=== PATIENT | female | born 1965 | race Caucasian/White ===

== ENCOUNTER → 2018-06-04 | Outpatient (CLI) | payer OTHER ==
--- NOTE | 2018-06-05 10:19 | MM ---
Reason for exam: screening (asymptomatic). Last mammogram was performed 2 years and 8 months ago. History: Family history of breast cancer in mother. Physical Findings: A clinical breast exam by your physician is recommended on an annual basis and results should be correlated with mammographic findings. MG 3D Screening Mammo W/Cad Bilateral CC and MLO view(s) were taken. Prior study comparison: October 02, 2015, mammogram, performed at [facility]. November 11, 2011, bilateral digital screening mammo w/CAD. The breast tissue is heterogeneously dense. This may lower the sensitivity of mammography. Benign calcifications bilaterally. No significant changes when compared with prior studies. ASSESSMENT: Benign, BI-RAD 2 RECOMMENDATION: Routine screening mammogram of both breasts in 1 year.
== END | disposition home or self-care (01) ==
LOC: RADMAMWWP 07:59
PROVIDERS: ATTEND Family Medicine
DX: Z12.31 Encounter for screening mammogram for malignant neoplasm of breast (principal); R53.83 Other fatigue
CPT/HCPCS: 77063; 77067

== ENCOUNTER → 2022-11-17 | Outpatient (CLI) | payer MEDICAID ==
--- NOTE | 2022-11-17 15:58 | BD ---
EXAMINATION TYPE: Axial Bone Density DATE OF EXAM: 11/17/2022 CLINICAL HISTORY: 56 years old Female. ICD-10 CODE: Z13.820 SCREEN FOR OSTEOPOROSIS Height: 62 Weight: 206.7 FRAX RISK QUESTIONS: Alcohol (3 or more units per day): no Family History (Parent hip fracture): no Glucocorticoids (More than 3mos): no History of Fracture in Adulthood: no Secondary Osteoporosis: 1. Type 1 Diabetes: no 2. Hyperthyroidism: no 3. Menopause before 45: no 4. Malnutrition: no 5. Chronic liver disease: no Rheumatoid Arthritis: no Current Tobacco Use: no RISK FACTORS HISTORY OF: Hip Fracture (Right/Left): no Spine Fracture: no History of Wrist Fracture: no Surgery to Spine/Hip(right/left)/Wrist (right/left): no Family History of Osteoporosis: Maternal Grandmother Active: yes Diet low in dairy products/other sources of calcium: yes Postmenopausal woman: yes Take estrogen and/or progesterone medications: no Lost more than 2 inches in height since high school: no Frequent falls: no Poor Health: no Hyperparathyroidism: no Adrenal Insufficiency: no MEDICATIONS: Prednisone or other steroids: no Thyroid Medications: no Osteoporosis Medications: no Additional Medications: Inhaler, vit d, reflux meds Additional History: EXAM MEASUREMENTS: Bone mineral densitometry was performed using the [employer] System. Bone mineral density as measured about the Lumbar spine is: ----- L1-L4(G/cm2): 1.054 T Score Values are as follows: ----- L1: -1.6 ----- L2: -1.9 ----- L3: -0.5 ----- L4: -0.6 ----- L1-L4: -1.0 Z Score Values are as follows: ----- L1: -1.6 ----- L2: -1.9 ----- L3: -0.5 ----- L4: -0.6 ----- L1-L4: -1.1 Baseline Study Bone mineral density about the R hip (g/cm2): 0.996 Bone mineral density about the L hip (g/cm2): 1.042 T Score values are as follows: -----R Neck: -0.8 -----L Neck: -0.9 -----R Total: -0.1 -----L Total: 0.3 Z Score values are as follows: -----R Neck: -0.3 -----L Neck: -0.4 -----R Total: 0.0 -----L Total: 0.3 Baseline Study FRAX%s: The graph provided illustrates a 5.6% chance for a major osteoporotic fx and a 0.2% chance fo r the hips probability for fx in 10 years time. IMPRESSION: Osteopenia (T Score between -2.5 and -1). There is slightly increased risk of fracture and the patient may be considered for treatment. Re-Screen 2-5 years. NOTE: T-SCORE=SD OF THE YOUNG ADULT MEAN.
--- NOTE | 2022-11-21 12:39 | MM ---
Reason for Exam: Screening (asymptomatic). Last mammogram was performed 1 year(s) and 1 month(s) ago. Patient History: Menarche at age 15. First Full-Term at age 27. Hysterectomy at age 46. Patient has history of breast feeding. Mother had breast cancer. Risk Values: Ginger 5 year model risk: 2.2%. NCI Lifetime model risk: 14.0%. Prior Study Comparison: 11/11/2011 Bilateral Screening Mammogram, [facility]. 10/02/2015 Screening Mammogram, [facility] [place]. 06/04/2018 Bilateral Screening Mammogram, [facility]. 08/17/2020 Bilateral Screening Mammogram, [facility] [place]. 03/24/2021 Left Diagnostic Mammogram, [facility] [place]. 10/11/2021 Bilateral Screening Mammogram, [facility] [place]. Tissue Density: There are scattered fibroglandular densities. Findings: Analyzed By CAD. There is no suspicious new group of microcalcifications or new suspicious mass in either breast. Overall Assessment: Negative, BI-RAD 1 Management: Screening Mammogram of both breasts in 1 year. A clinical breast exam by your physician is recommended on an annual basis and results should be correlated with mammographic findings. Electronically signed and approved by: Jesus Bradley M.D.
== END | disposition home or self-care (01) ==
LOC: RADBDWWP 14:24
PROVIDERS: ATTEND Internal Medicine
DX: Z12.31 Encounter for screening mammogram for malignant neoplasm of breast (principal); Z13.820 Encounter for screening for osteoporosis; M85.89 Other specified disorders of bone density and structure, multiple sites; Z78.0 Asymptomatic menopausal state; Z80.3 Family history of malignant neoplasm of breast
CPT/HCPCS: 77063; 77067; 77080

== ENCOUNTER → 2023-02-01 | Outpatient (CLI) | payer MEDICAID ==
--- NOTE | 2023-02-01 14:47 | P.SLEEP ---
History of Present Illness DATE: 02/01/2023 CONSULTATION/NEW PATIENT EVALUATION HISTORY OF PRESENT ILLNESS/SLEEP-WAKE EVALUATION: 57-year-old lady had been evaluated in the sleep center for possible obstructive sleep apnea hypopnea syndrome. SLEEP SCHEDULE: Usually sleep schedule from 10 PM to 7 AM. FALLING ASLEEP: Sometimes patient has problems with falling asleep, has TV set and bedroom. DURING SLEEP: Patient usually sleeps on the side position with loud snoring and witnessed episodes of stop breathing during the sleep according to her . Patient wakes up from sleep average 4 times with 4 episodes of nocturia. No history of hypnogogical hallucinations, sleep paralysis, or cataplexy. DURING THE DAY/WAKE STATE: In the morning patient wake up tired, has difficulties to place attention, has problems with concentration, irritability, anxiety, sexual dysfunction. [place] sleepiness scale is 6. Occasionally patient may take naps at afternoon time. PAST MEDICAL HISTORY: Asthma, sinuses problems, headaches, acid reflux. PAST SURGICAL HISTORY: Partial hysterectomy. MEDICATIONS: Venlafaxine 37.5 mg once a day, Ventolin, albuterol, montelucast 10 mg once a day. SOCIAL HISTORY: Negative for smoking, alcohol consumption occasional. FAMILY HISTORY: Hypertension, heart problems. REVIEW OF SYSTEMS: Snoring, multiple awakenings from sleep. No fevers. No double vision. No recent chest pain. No shortness of breath. No abdominal pain. No bleeding episodes. No blood in urine. No seizure episodes. PHYSICAL EXAMINATION: GENERAL: A pleasant patient without any distress. VITAL SIGNS: BP 170/103 , HR 107 , RR 12 , weight 205.2 pounds, height 5 foot to inches, body mass index 37.4 . HEENT: PERRLA, EOMI. Evaluation of oropharynx showed tongue protrudes midline, low position of soft palate Mallampati 3, significantly enlarged tonsils size 3. NECK: Supple. No JVD. Thyroid is not palpable. 17 inches in circumference. LUNGS: Clear to percussion and to auscultation. Good air exchange. No wheezing or rhonchi. HEART: S1, S2 regular. No murmurs, gallops or rubs. ABDOMEN: Soft and nontender. Bowel sounds are present. No organomegaly appreciated. Slightly obese EXTREMITIES: No clubbing or cyanosis. 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 Cranial nerves 2 to 7 intact. There is no fasciculation or atrophy noted. No focal deficits observed. ASSESSMENT: 1. Loud snoring, witnessed episodes of stop breathing during the sleep, multiple awakenings from sleep with nocturia ,small oropharyngeal airspace with significant hypertrophy of tonsils and low position of soft palate, wide neck 17 inches in circumference. Obstructive sleep apnea-hypopnea syndrome. 2. Obesity, BMI 37.4. 3. Menopause. 4. Asthma. 5 headaches, some started at night. 6 . Acid reflux. 7. Sinuses problems. 8. Status post partial hysterectomy. PLAN: 1. Polysomnography for evaluation of patient's breathing during sleep. 2. CPAP/BiPAP titration if sleep study confirms obstructive sleep apnea- hypopnea syndrome. 3. Preferable position during sleep on the side. 4. No driving if patient feels any sleepiness. Patient is aware of civil and criminal liability for unsafe driving. 5. Sleep hygiene with regular sleep time for at least 7.5-8 hours. 6. Watching and losing weight. 7. Tonsillectomy may be considered, if it will be necessary. Thank you very much for referring this patient for consultation. Sincerely, Kee Silva MD, PhD, FAASM. Diplomat of [place] Board of Sleep Medicine, Sleep Medicine Board by [place] Board of Medical Specialities [place] Board of Internal Medicine [employer] [facility] [place] Sleep Note - Sleep Note Sleep Note: Temperature: Pulse Rate: Respiratory Rate: Blood Pressure: SpO2: Height: Weight: BMI: Neck Circumference:
== END ==
LOC: 3 N SLEEP 13:57
PROVIDERS: ATTEND Internal Medicine
DX: G47.33 Obstructive sleep apnea (adult) (pediatric) (principal); J45.909 Unspecified asthma, uncomplicated; R51.9 Headache, unspecified; K21.9 Gastro-esophageal reflux disease without esophagitis; E66.9 Obesity, unspecified; Z68.37 Body mass index [BMI] 37.0-37.9, adult; Z78.0 Asymptomatic menopausal state; J34.2 Deviated nasal septum; Z99.89 Dependence on other enabling machines and devices
CPT/HCPCS: 99211

== ENCOUNTER → 2023-03-06 | Outpatient (CLI) | payer MEDICAID ==
--- NOTE | 2023-03-09 12:09 | P.PCN ---
Description of Procedure: POLYSOMNOGRAPHY REPORT PROCEDURE(S)/DATE(S): Polysomnography 03/06/2023 CLINICAL: Patient has been seen in the sleep center for evaluation of obstructive sleep apnea-hypopnea syndrome. Please see my consultation. Sleep study has been done for evaluation of patient breathing during the sleep. PROCEDURE: The standard montage for clinical polysomnography included the electroencephalogram, the electrooculogram, the mentalis surface electromyography and Lead II cardiography. The respiratory battery consisted of measurements of nasal/buccal air flow, pressure transducer measurements from nose, thoracic and/or abdominal effort and intercostal surface electromyography. Video monitoring has been done to check for any parasomnia events. Nocturnal oxyhemoglobin saturations were obtained by finger oximetry. Step-choudhary titration with positive airway pressure was utilized to control the respiratory events, if necessary. RESULTS: During the diagnostic sleep study sleep efficiency was low 73.2 %. Latency to sleep onset was significantly prolonged to 48.0 min. Sleep architecture showed stage NI was increased to 11.2 %, Delta sleep was normal 15.4 %, REM sleep was short 10.3 %. Respiratory channel showed 87 obstructive apneas, 0 mixed apneas, 0 central apneas, 176 hypopneas with lowest oxygen level 84 %. Total apnea hypopnea index was 49.1. Heart rate was in the range between 79 and 89, average 83. EMG showed 15.1 periodic limb movements per hour with 1.7 micro-arousals per hour. IMPRESSIONS: 1. Severe obstructive sleep apnea hypopnea syndrome. 2. Mild periodic limb movements have been documented. Please see other impressions from consultation PLAN: 1. The patient will have PAP titration for correction of respiratory abnormalities during the sleep. 2. Losing weight program. 3. Sleep hygiene with regular time in bed for at least 7-1/2 hours. 4. No driving if feeling sleepiness. 5. Please check iron profile including ferritin level. Low level of iron may increase the risk for periodic limb movements. Thank you very much for allowing me to participate in the management of your patient. Sincerely, Kee Silva MD, PhD, FAASM. Diplomat of [place] Board of Sleep Medicine, Sleep Medicine Board by [place] Board of Internal Medicine Bonding Machine Tender [facility] [place]
== END ==
LOC: EDSTATUS 19:20 → 3 N SLEEP 19:32
PROVIDERS: ATTEND Internal Medicine
DX: G47.33 Obstructive sleep apnea (adult) (pediatric) (principal); G47.61 Periodic limb movement disorder; Z99.89 Dependence on other enabling machines and devices
CPT/HCPCS: 95810

== ENCOUNTER → 2023-11-21 | Outpatient (CLI) | payer MEDICAID ==
--- NOTE | 2023-11-24 10:00 | MM ---
Reason for Exam: Screening (asymptomatic). Last screening mammogram was performed 12 month(s) ago. Patient History: Menarche at age 15. First Full-Term at age 27. Hysterectomy at age 46. Postmenopausal. Patient has history of breast feeding. Mother had breast cancer. Risk Values: Ginger 5 year model risk: 2.3%. NCI Lifetime model risk: 13.7%. Prior Study Comparison: 06/04/2018 Bilateral Screening Mammogram, [facility]. 08/17/2020 Bilateral Screening Mammogram, [facility] [place]. 03/24/2021 Left Diagnostic Mammogram, [facility] [place]. 10/11/2021 Bilateral Screening Mammogram, [facility] [place]. 11/17/2022 Bilateral MG 3D screening mammo w/cad, [facility]. Tissue Density: There are scattered areas of fibroglandular density. Findings: Analyzed By CAD. There is no suspicious group of microcalcifications or new suspicious mass in either breast. Chronic nodularity left breast. Likely represents a benign lymph node. Punctate benign calcification. Overall Assessment: Benign, BI-RAD 2 Management: Screening Mammogram of both breasts in 1 year. . Patient should continue monthly self-breast exams. A clinical breast exam by your physician is recommended on an annual basis. This exam should not preclude additional follow-up of suspicious palpable abnormalities. Note on Ginger scores and lifetime risk: 1. A Ginger score greater than 3% is considered moderate risk. If this is the case, consider specialist referral to assess eligibility for a risk reducing agent. 2. If overall lifetime risk for the development of breast cancer is 20% or higher, the patient may qualify for future screening with alternating mammogram and breast MRI. Electronically signed and approved by: James Moise M.D. Radiologis
== END | disposition home or self-care (01) ==
LOC: RADMAMWWP 07:07
PROVIDERS: ATTEND Internal Medicine
DX: Z12.31 Encounter for screening mammogram for malignant neoplasm of breast (principal); Z78.0 Asymptomatic menopausal state; Z80.3 Family history of malignant neoplasm of breast
CPT/HCPCS: 77063; 77067

== ENCOUNTER → 2023-12-07 | Outpatient (CLI) | payer MEDICAID ==
[2023-12-07 16:22] VITALS: BP 162/84; PULSE 94; RESP 16; TEMP 98.3
--- NOTE | 2023-12-07 17:10 | P.PN ---
Subjective DATE: 12/07/2023 FOLLOW UP VISIT. Patient with obstructive sleep apnea hypopnea syndrome return to sleep center for follow-up visit. Information from previous visit have been reviewed. Patient is using PAP equipment every night for the whole night, getting PAP supplies in time. Patient is using fullface mask which goes above the nose and create some problem for skin. [place] sleepiness scale is 4, which is normal. I checked information from PAP unit. PAP unit pressure 5-14, average 12.7 cm H2O. Usage is 100% for more then 4 hours, average 7.9 hours per night. Leak is 10 l/m, which is in acceptable range. Apnea Hypopnea Index is 1.1, which is normal. MEDICATIONS:1. Amlodipine 5 mg once a day 2. Montelukast 10 mg once a day During physical exam: GENERAL: A pleasant patient without any distress. VITAL SIGNS: Please see below, weight 221, BMI 40.4. HEENT: PERRLA, EOMI.low position of soft palate, Mallapati 3 . NECK: Supple. No JVD. LUNGS: Clear to percussion and to auscultation. Good air exchange. No wheezing or rhonchi. HEART: S1, S2 regular. ABDOMEN: Soft and nontender. Slightly obese EXTREMITIES: No clubbing or cyanosis. WILDERNESS GUIDE: Awake, alert, and oriented x3. No focal deficit. Impressions: 1. Obstructive sleep apnea-hypopnea syndrome. Patient demonstrated great compliance with treatment, benefiting from treatment. 2. Obesity, BMI 40.4, patient increased weight on 10 pounds comparing with previous visit. 3. Asthma. 4. History of headaches. 5. Acid reflux. 6. History of sinuses problems. 7. Status post partial hysterectomy. Plan: 1. Continue using PAP equipment every night for the whole night. 2. Patient will try fullface mask which goes under the nose. 3. PAP unit should stay lower then position of the head. 4. Advised patient to remove all remaining water from humidifier canister daily and make it dry after each usage. Refill canister with fresh distilled water before each usage. 5. Sleep hygiene with regular time in bed for at least 8 hours. 6. Precautions related to driving. No driving if feel any sleepiness. 7. I will maintain prescription for PAP supplies including mask, tube, filters. 8. Follow up visit in 6 months or earlier if patient has any problems. 9. Watching and losing weight. Thank you very much for allowing me to participate in the management of your patient. Kee Silva MD, PhD, FAASM. Diplomat of Citizen Of [place] Board of Sleep Medicine, Sleep Medicine Board by Citizen Of [place] Board of Internal Medicine [employer] [facility] [place] Objective - Vital Signs Vital signs: Vital Signs Temp 98.3 F 12/07/23 16:05 Pulse 94 12/07/23 16:05 Resp 16 12/07/23 16:05 BP 162/84 12/07/23 16:05 Pulse Ox 96 12/07/23 16:05 FiO2
== END ==
LOC: 3 N SLEEP 15:04
PROVIDERS: ATTEND Internal Medicine
DX: G47.33 Obstructive sleep apnea (adult) (pediatric) (principal); E66.9 Obesity, unspecified; J45.909 Unspecified asthma, uncomplicated; K21.9 Gastro-esophageal reflux disease without esophagitis; Z86.69 Personal history of other diseases of the nervous system and sense organs; Z90.711 Acquired absence of uterus with remaining cervical stump; Z87.09 Personal history of other diseases of the respiratory system; Z68.41 Body mass index [BMI] 40.0-44.9, adult; Z79.899 Other long term (current) drug therapy; Z99.89 Dependence on other enabling machines and devices; Z91.018 Allergy to other foods; Z88.5 Allergy status to narcotic agent; Z88.8 Allergy status to other drugs, medicaments and biological substances; Z91.013 Allergy to seafood
CPT/HCPCS: 99212

== ENCOUNTER → 2024-07-11 | Outpatient (CLI) | payer MEDICAID ==
[2024-07-11 11:02] VITALS: BP 150/87; PULSE 98; RESP 16; TEMP 98.3
--- NOTE | 2024-07-11 11:13 | P.PROGSL ---
Subjective DATE: 07/11/2024 FOLLOW UP VISIT. Patient with obstructive sleep apnea hypopnea syndrome return to sleep center for follow-up visit. Information from previous visit have been reviewed. Patient is using PAP equipment every night for the whole night, getting PAP supplies in time. The patient does not have significant problems with the mask, PAP unit and humidification. [place] sleepiness scale is 4, which is normal. I checked information from PAP unit. PAP unit pressure 5-14, average 11.7 cm H2O. Usage is 100% for more then 4 hours, average 7.6 hours per night. Leak is 4 l/m, which is in acceptable range. Apnea Hypopnea Index is 0.9, which is normal. MEDICATIONS have been reviewed, please see below. During physical exam: GENERAL: A pleasant patient without any distress. VITAL SIGNS: Please see below, weight is 211 lbs. HEENT: PERRLA, EOMI.low position of soft palate, Mallapati 3. NECK: Supple. No JVD. LUNGS: Clear to percussion and to auscultation. Good air exchange. No wheezing or rhonchi. HEART: S1, S2 regular. ABDOMEN: Soft and nontender. Slightly obese EXTREMITIES: No clubbing or cyanosis. 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 No focal deficit. Impressions: 1. Obstructive sleep apnea-hypopnea syndrome. Patient demonstrated great compliance with treatment, benefiting from treatment. 2. Obesity, BMI 38.3, patient lost 10 pounds comparing with previous visit. 3. Asthma. 4. Acid reflux. 5. History of headaches. 6. History of sinuses problems. 7. Status post partial hysterectomy. Plan: 1. Continue using PAP equipment every night for the whole night. 2. Sleep hygiene with regular time in bed for at least 7.5-8 hours 3. PAP unit should stay lower then position of the head. 4. Advised patient to remove all remaining water from humidifier canister daily and make it dry after each usage. Refill canister with fresh distilled water before each usage. 5. Watching and continue losing weight. 6. Precautions related to driving. No driving if feel any sleepiness. 7. I will maintain prescription for PAP supplies including mask, tube, filters. 8. Follow up visit in 8 months or earlier if patient has any problems. Thank you very much for allowing me to participate in the management of your patient. Kee Silva MD, PhD, FAASM. Diplomat of [place] Board of Sleep Medicine, Sleep Medicine Board by [place] Board of Internal Medicine [employer] [place] Objective - Vital Signs Vital Signs: Vital Signs Temp 98.3 F 07/11/24 11:02 Pulse 98 07/11/24 11:02 Resp 16 07/11/24 11:02 BP 150/87 07/11/24 11:02 Pulse Ox 98 07/11/24 11:02 FiO2 Intake & Output 07/10/24 07/11/24 07/11/24 18:59 06:59 18:59 Weight 95.708 kg Home Medications: Home Medications Medication Instructions Recorded Confirmed Type Montelukast [Singulair] 10 mg PO DAILY 12/07/23 07/11/24 History amLODIPine BES/OLMESARTAN MED 5 mg PO DAILY 12/07/23 07/11/24 History [Sai 5-20 mg Tablet] Fluticasone Propion/Salmeterol See Rx Instructions .ROUTE .COMPLEX 07/11/24 07/11/24 History [Fluticasone-Salmeterol 100-50] buPROPion HCL [buPROPion HCL XL] 150 mg PO DAILY 07/11/24 07/11/24 History
== END ==
LOC: 3 N SLEEP 10:28
PROVIDERS: ATTEND Internal Medicine
DX: G47.33 Obstructive sleep apnea (adult) (pediatric) (principal); E66.9 Obesity, unspecified; J45.909 Unspecified asthma, uncomplicated; K21.9 Gastro-esophageal reflux disease without esophagitis; Z87.09 Personal history of other diseases of the respiratory system; Z90.711 Acquired absence of uterus with remaining cervical stump; Z86.69 Personal history of other diseases of the nervous system and sense organs; Z99.89 Dependence on other enabling machines and devices; Z68.38 Body mass index [BMI] 38.0-38.9, adult; Z88.5 Allergy status to narcotic agent; Z88.8 Allergy status to other drugs, medicaments and biological substances; Z91.018 Allergy to other foods; Z91.013 Allergy to seafood; Z79.51 Long term (current) use of inhaled steroids
CPT/HCPCS: 99212

== ENCOUNTER → 2025-03-07 | Outpatient (CLI) | payer MEDICAID ==
--- NOTE | 2025-03-07 18:37 | CA ---
Stress Echo Report Masha Perry Age: 59 Gender: F : 1965 Exam Date: 03/07/2025 10:54 Exam Location: [facility] Ht (in): 62 Wt (lb): 210 Ordering Physician: Brigido Holland DO Referring Physician: KYRA,, Hematology Specialist: Maria Elena Holt RDCS Technologist Procedure CPT: Indication: R07.9 CHEST PAIN ICD-9 Codes: Rhythm: Patient History: Chest pain, hypertension and family history of heart disease Cardiac Medications: SEE LIST,,,,, Medications in past 24 hours: Contrast: Definity Stress Results Protocol: Donta Total dose(mL): 2 Exercise Duration (min:sec): 6:[address] Depression (mm): Angina Score: Cabral Score: METS: 7.3 Resting HR: 94 Resting BP: 140 / 75 Peak HR: 154 Peak BP: 216 / 74 Max Predicted HR: 161 96 % Max Predicted HR Target HR: 137 Double Product: 88220 Stress Summary: BP Response: Reason for Termination: MAX EXERTION/TARGET HR Cardiac Symptoms: NO SYMPTOMS ECG Analysis Resting ECG: Stress ECG: Arrhythmia: Echo Analysis Resting Echo: Peak Echo Analysis: MEASUREMENTS (Male/Female) Normal Values CONCLUSIONS Reason chest discomfort, hypertension Shortness of breath Exercise stress echo reveals absence of ischemia or arrhythmia. Mildly hypertensive response to exercise. Total exercise duration of 6 minutes 15 seconds, achieving 7.[address] Mario Ramos MD (Electronically Signed) Final Date: 07 March 2025 18:36
== END | disposition home or self-care (01) ==
LOC: RADNMMAIN 10:30
PROVIDERS: ATTEND Internal Medicine
DX: R07.9 Chest pain, unspecified (principal); I10 Essential (primary) hypertension
CPT/HCPCS: 93351; Q9957

== ENCOUNTER → 2025-03-26 | Outpatient (CLI) | payer MEDICAID ==
[2025-03-26 10:43] VITALS: BP 155/82; PULSE 99; RESP 16; TEMP 98.2
--- NOTE | 2025-03-26 11:09 | P.PROGSL ---
Subjective DATE: 03/26/2025 FOLLOW UP VISIT. Patient with obstructive sleep apnea hypopnea syndrome return to sleep center for follow-up visit. Information from previous visit have been reviewed. Patient is using PAP equipment every night for the whole night, getting PAP supplies in time. The patient does not have significant problems with the mask, PAP unit and humidification. [place] sleepiness scale is 4. I checked information from PAP unit. PAP unit pressure 5-14, average 12.2 cm H2O. Usage is 100% for more then 4 hours, average 8.6 hours per night. Leak is 7 l/m, which is in acceptable range. Apnea Hypopnea Index is 1.1, which is normal. MEDICATIONS have been reviewed, please see below. During physical exam: GENERAL: A pleasant patient without any distress. VITAL SIGNS: Please see below, weight is 205 lbs. HEENT: PERRLA, EOMI.low position of soft palate, Mallapati 3. NECK: Supple. No JVD. LUNGS: Clear to percussion and to auscultation. Good air exchange. No wheezing or rhonchi. HEART: S1, S2 regular. ABDOMEN: Soft and nontender.[] EXTREMITIES: No clubbing or cyanosis. COLLISION TECHNICIAN: Awake, alert, and oriented x3. No focal deficit. Impressions: 1. Obstructive sleep apnea-hypopnea syndrome. Patient demonstrated great compliance with treatment, benefiting from treatment. 2. Obesity, BMI 37.8, patient lost 6 pounds comparing with previous visit. 3. Asthma. 4. Acid reflux. 5. History of sinus problems. 6. Status post partial hysterectomy. 7. History of headaches. Plan: 1. Continue using PAP equipment every night for the whole night. 2. Sleep hygiene with regular time in bed for at least 7.5-8 hours 3. PAP unit should stay lower then position of the head. 4. Advised patient to remove all remaining water from humidifier canister daily and make it dry after each usage. Refill canister with fresh distilled water before each usage. 5. Watching weight. 6. Precautions related to driving. No driving if feel any sleepiness. 7. I will maintain prescription for PAP supplies including mask, tube, filters. 8. Follow up visit in 8 months or earlier if patient has any problems. Thank you very much for allowing me to participate in the management of your patient. Kee Silva MD, PhD, FAASM. Diplomat of [place] Board of Sleep Medicine, Sleep Medicine Board by [place] Board of Internal Medicine C 40A Crew Chief [facility] [place] Objective - Vital Signs Vital Signs: Vital Signs Temp 98.2 F 03/26/25 10:41 Pulse 99 03/26/25 10:41 Resp 16 03/26/25 10:41 BP 155/82 03/26/25 10:41 Pulse Ox 96 03/26/25 10:41 FiO2 Intake & Output 03/25/25 03/26/25 03/26/25 18:59 06:59 18:59 Weight 92.986 kg Home Medications: Home Medications Medication Instructions Recorded Confirmed Type Montelukast [Singulair] 10 mg PO DAILY 12/07/23 03/26/25 History amLODIPine BES/OLMESARTAN MED 5 mg PO DAILY 12/07/23 03/26/25 History [Sai 5-20 mg Tablet] Fluticasone Propion/Salmeterol See Rx Instructions .ROUTE .COMPLEX 07/11/24 History [Fluticasone-Salmeterol 100-50] buPROPion HCL [buPROPion HCL XL] 300 mg PO DAILY 07/11/24 03/26/25 History Aspirin [Children's Aspirin] 81 mg PO DAILY 03/26/25 03/26/25 History
== END ==
LOC: 3 N SLEEP 10:32
PROVIDERS: ATTEND Internal Medicine
DX: G47.33 Obstructive sleep apnea (adult) (pediatric) (principal); E66.9 Obesity, unspecified; J45.909 Unspecified asthma, uncomplicated; K21.9 Gastro-esophageal reflux disease without esophagitis; Z87.09 Personal history of other diseases of the respiratory system; Z90.711 Acquired absence of uterus with remaining cervical stump; Z86.69 Personal history of other diseases of the nervous system and sense organs; Z68.37 Body mass index [BMI] 37.0-37.9, adult; Z88.5 Allergy status to narcotic agent; Z91.041 Radiographic dye allergy status; Z91.013 Allergy to seafood; Z91.018 Allergy to other foods
CPT/HCPCS: 99212